=== PATIENT | female | born 1955 | race Caucasian/White ===

== ENCOUNTER 2018-09-24 05:56 | Day surgery (SDC) | payer BC ==
[2018-09-24] MEDS ORDERED: Dextrose 5%-Lactated Ringers 1,000 ML IV SCH (06:30)
[2018-09-24] MEDS ORDERED: fentaNYL 100 MCG/2 ML SDV ONE (07:14)
[2018-09-24] MEDS ORDERED: Midazolam 1 MG/ML 2 ML SDV ONE (07:14)
[2018-09-24] MEDS ORDERED: Propofol 200 MG/20 ML SDV ONE (07:14)
--- NOTE | 2018-09-25 16:58 | OR ---
DATE OF PROCEDURE: 09/24/2018 PREOPERATIVE DIAGNOSIS: Indications for screening colonoscopy. POSTOPERATIVE DIAGNOSIS: Colonoscopy showing a single polyp in the distal sigmoid colon (25 cm). PROCEDURE: Flexible colonoscopy with: 1. Polypectomy by snare technique (69431). 2. Injection of submucosal Katie ink for identification of polypectomy site (32476). ANESTHESIA: IV sedation. INDICATION FOR PROCEDURE: A 62-year-old presenting for her first colonoscopy. She has no personal or family history of colonic neoplasia and has not had any bleeding or other symptoms suggestive of other colonic abnormalities. Plan is to proceed with a flexible colonoscopy with biopsies and/or polypectomy as indicated. Potential risks including bleeding and perforation were discussed, and the patient wishes to proceed. DETAILS OF PROCEDURE: The patient was taken to the room and placed in a left lateral decubitus position. IV sedation was administered, after which the initial digital rectal exam was performed and it was unremarkable. Colonoscope was then passed into the rectum and retroflexion revealed uncomplicated hemorrhoidal columns. The scope was eventually passed to the cecum. The prep was quite good with there only being a scant amount of slightly mucoid appearing stool. To that level, there were no diverticula and no areas of colitis. On withdrawal of the scope, a single polyp at 25 cm was identified. This measured roughly 1 cm in dimension. It was encircled at its base and removed by means of the cautery snare. This was then evacuated through the suction channel coming out in 2 pieces. The base appeared to be hemostatic at the cautery site. As this is a slightly nebulous location and in an event that this might come back as a malignancy, 5 mL of Katie ink was injected submucosally adjacent to the polypectomy site and at that point, the scope was withdrawn. No additional abnormalities were noted. The patient was taken to the recovery room in satisfactory condition. Assuming that today's polyp comes back as benign, she should have a repeat colonoscopy in 2 years. Po Ponce MD /[id number]
== END 2018-09-24 08:52 | disposition home or self-care (01) ==
LOC: JP.SDS 05:56
PROVIDERS: ATTEND Surgery
DX: Z12.11 Encounter for screening for malignant neoplasm of colon (principal); D12.5 Benign neoplasm of sigmoid colon; E66.9 Obesity, unspecified; Z88.8 Allergy status to other drugs, medicaments and biological substances; Z88.5 Allergy status to narcotic agent
CPT/HCPCS: 45381; 45385; J2250; J2704; J3010; J7042; 88305

== ENCOUNTER 2020-12-28 06:58 | Day surgery (SDC) | payer BC ==
[2020-12-28] MEDS ORDERED: Dextrose 5%-Lactated Ringers 1,000 ML IV SCH (07:30)
[2020-12-28] MEDS ORDERED: Midazolam 1 MG/ML 2 ML SDV ONE (07:34)
[2020-12-28] MEDS ORDERED: fentaNYL 100 MCG/2 ML SDV ONE (07:34)
[2020-12-28] MEDS ORDERED: Propofol 200 MG/20 ML SDV ONE (07:34)
--- NOTE | 2021-01-03 18:10 | OR ---
DATE OF PROCEDURE: 12/28/2020 SURGEON: Po Pnoce MD PREOPERATIVE DIAGNOSIS: History of colon polyps. POSTOPERATIVE DIAGNOSIS: Recurrent colon polyps x3. PROCEDURE: Flexible colonoscopy with polypectomy by snare technique x3. ANESTHESIA: IV sedation. INDICATION FOR PROCEDURE: A 65-year-old female presenting with indication for followup screening colonoscopy. She does have history of previous adenomatous polyps involving the colon. The plan was to do a colonoscopy with biopsies and/or polypectomy as indicated. Potential risks including bleeding and perforation were discussed, and the patient wishes to proceed. DETAILS OF PROCEDURE: The patient was taken to the operating room and placed in a left lateral decubitus position. IV sedation was administered; after which, the initial digital rectal exam was performed and was unremarkable. Colonoscope was passed into the rectum with retroflexion revealing uncomplicated hemorrhoidal columns. Scope was eventually passed to the level of the cecum. The prep was fairly good. Only a small amount of liquid stool was present. The patient was noted to have no diverticula or areas of colitis. She did have three small polyps, all less than 1 cm, one was located in the hepatic flexure, one in the splenic flexure, and one in the mid rectum. All of these were excised by means of cautery and snare technique and separately sent for histologic evaluation. Good hemostasis at the snare sites was confirmed and the procedure then concluded. Assuming that the present polyps are benign, the patient followup colonoscopy in three years. Po Ponce MD /[id number]
== END 2020-12-28 10:40 | disposition home or self-care (01) ==
LOC: JP.SDS 06:58
PROVIDERS: ATTEND Surgery
DX: Z12.11 Encounter for screening for malignant neoplasm of colon (principal); D12.8 Benign neoplasm of rectum; D17.5 Benign lipomatous neoplasm of intra-abdominal organs; K63.89 Other specified diseases of intestine; K64.9 Unspecified hemorrhoids; I25.10 Atherosclerotic heart disease of native coronary artery without angina pectoris; N18.9 Chronic kidney disease, unspecified; E66.9 Obesity, unspecified; Z68.41 Body mass index [BMI] 40.0-44.9, adult; Z88.6 Allergy status to analgesic agent; Z88.8 Allergy status to other drugs, medicaments and biological substances
CPT/HCPCS: 45385; 88305; J2250; J2704; J3010; J7121

== ENCOUNTER 2022-12-24 12:25 | Emergency (ER) | payer BC | END 2022-12-24 14:18 | disposition home or self-care (01) | LOC: JP.ED 12:25 | DX: N39.0 Urinary tract infection, site not specified (principal); N18.9 Chronic kidney disease, unspecified; E66.9 Obesity, unspecified; Z68.39 Body mass index [BMI] 39.0-39.9, adult; Z88.5 Allergy status to narcotic agent; Z79.82 Long term (current) use of aspirin | CPT/HCPCS: 36415; 80048; 81001; 85025; 87086; 87088; 87186; 99283 ==

== ENCOUNTER 2025-08-24 08:44 | Day surgery (SDC) | payer BC ==
[2025-08-24] MEDS: Nozin Nasal Sanitizer NASBOTH SCH ×2 (11:04→22:21)
[2025-08-24] MEDS: Lactated Ringers 1,000 ML IV SCH (11:04)
[2025-08-24] MEDS: methylPREDNISolone Sodium Succinate 125 MG/2 ML SDV IVPUSH ONE (12:34)
[2025-08-24] MEDS ORDERED: fentaNYL 100 MCG/2 ML SDV ONE (13:04)
[2025-08-24] MEDS ORDERED: Midazolam 1 MG/ML 2 ML SDV ONE ×2 (13:04→15:00)
[2025-08-24] MEDS ORDERED: Propofol 200 MG/20 ML SDV ONE ×3 (13:04→15:07)
[2025-08-24] MEDS ORDERED: Magnesium Hydroxide 400 MG/5 ML Susp 30 ML Cup PO PRN (13:26)
[2025-08-24] MEDS ORDERED: Ondansetron 4 MG/2 ML SDV IVPUSH PRN (13:26)
[2025-08-24] MEDS ORDERED: Lactated Ringers 1,000 ML ONE (13:36)
[2025-08-24] MEDS ORDERED: ePHEDrine 50 MG/ML SDV ONE (14:01)
[2025-08-24] MEDS ORDERED: Phenylephrine 1% 10 MG/ML SDV ONE (14:20)
[2025-08-24] MEDS: Ketorolac 15 MG/ML SDV IVPUSH PRN (16:37)
[2025-08-25 07:40] LABS: PLATELET COUNT,PLT 266.0 K/uL (130-375); RED BLOOD CELL COUNT 3.78 M/uL (3.77-5.24); WHITE BLOOD CELL COUNT,WBC 11.9 K/uL (3.2-11.0)
[2025-08-25] MEDS ORDERED: Non-Formulary Medication 1 Each (Prednisone [Prednisone] 2.5 MG Tablet) PO SCH (09:00)
[2025-08-25] MEDS: Aspirin 325 MG Tab.EC PO SCH (09:23)
[2025-08-25] MEDS: Hydrochlorothiazide/Triamterene 25-37.5 Tab PO SCH (09:25)
== END 2025-08-25 13:35 | disposition home or self-care (01) ==
LOC: JP.SDS 08:44 → JP.MS 13:26 → JP.SDS 08-25 13:35
PROVIDERS: ATTEND Specialist
DX: M16.12 Unilateral primary osteoarthritis, left hip (principal); N18.9 Chronic kidney disease, unspecified; Z88.5 Allergy status to narcotic agent; Z88.8 Allergy status to other drugs, medicaments and biological substances; Z79.82 Long term (current) use of aspirin; Z79.899 Other long term (current) drug therapy
CPT/HCPCS: 01214-QZ; 36415; 72170; 72170-26; 85027; 97110-GP; 97161-GP; 97165-GO; A9270-GY; C1713; C1776; J0690; J1885; J2250; J2371; J2704; J2919; J3010; J7030; J7120